=== PATIENT | female | born 2000 | race Caucasian/White ===

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

== ENCOUNTER → 2020-09-07 | Outpatient (CLI) | payer BC | END | disposition home or self-care (01) | DX: K82.8 Other specified diseases of gallbladder (principal) ==

== ENCOUNTER 2020-10-01 06:17 | Day surgery (SDC) | payer BC ==
[2020-09-27 10:30] VITALS: BMI 21.9
[~2020-10-01 06:17] MED LIST: ACETAMINOPHEN TAB 500 MG TAB PO PRN; DEXAMETHASONE SOD PHOSPHATE 4 MG/ML 1 ML VIAL IV ONE; HEPARIN SODIUM,PORCINE/PF 5,000 UNIT/0.5 ML SYRINGE SQ PRN; LACTATED RINGERS 1,000 ML IV SCH; MIDAZOLAM 2 MG/2 ML VIAL IV PRN; ONDANSETRON 4 MG/2 ML VIAL IVP ONE; SCOPOLAMINE 1.5MG/72HR PATCH TRANSDERM ONE
[2020-10-01 06:41] VITALS: TEMP 97.8
[2020-10-01] MEDS ORDERED: LACTATED RINGERS 1,000 ML IV ONE (06:53)
[2020-10-01] MEDS ORDERED: HYDROmorphone 0.5 MG/0.5 ML SYRINGE IVP PRN (07:00)
[2020-10-01] MEDS ORDERED: SUCCINYLCHOLINE CHLORIDE 100 MG/5 ML SYR IV ONE (07:40)
[2020-10-01] MEDS ORDERED: NEOSTIGMINE 1 MG/ML 10 ML VIAL ONE (07:40)
[2020-10-01] MEDS ORDERED: PROPOFOL 10 MG/ML 20 ML VIAL IV ONE (07:40)
[2020-10-01] MEDS ORDERED: HYDROmorphone (PF) 1 MG/ML ONE (07:40)
[2020-10-01] MEDS ORDERED: ROCURONIUM 10 MG/ML (5 ML VIAL) IV ONE (07:40)
[2020-10-01] MEDS ORDERED: MIDAZOLAM 2 MG/2 ML VIAL ONE (07:40)
[2020-10-01] MEDS ORDERED: KETOROLAC 15 MG/ML 1 ML VIAL ONE (07:40)
[2020-10-01] MEDS ORDERED: GLYCOPYRROLATE 0.2 MG/ML 2 ML VIAL ONE (07:40)
[2020-10-01] MEDS ORDERED: LIDOCAINE 1% INJ 10MG/ML (20 ML MDV) ONE (07:40)
[2020-10-01] MEDS ORDERED: fentaNYL (PF) 50 MCG/ML 2 ML AMP ONE (07:40)
[2020-10-01] MEDS ORDERED: BUPIVACAINE (PF) 0.5% 30 ML VIAL SQ ONE (08:03)
--- NOTE | 2020-10-01 08:25 | P.GSHP ---
History of Present Illness H&P Date: 10/01/20 Chief Complaint: Right upper quadrant pain This is a 20-year-old female who's had complaints of right upper quadrant pain. Recent HIDA scan shows an abnormal ejection fraction. Patient presents today for laparoscopic cholecystectomy Past Medical History Additional Past Medical History / Comment(s): hx of migraine headaches, cholecystisis History of Any Multi-Drug Resistant Organisms: None Reported Past Surgical History: No Surgical Hx Reported Past Anesthesia/Blood Transfusion Reactions: No Reported Reaction Smoking Status: Never smoker Medications and Allergies Home Medications Medication Instructions Recorded Confirmed Type Enskyce 1 tab PO DAILY 09/27/20 History Propranolol [Inderal] 20 mg PO HS 09/27/20 09/27/20 History Allergies Allergy/AdvReac Type Severity Reaction Status Date / Time No Known Allergies Allergy Verified 09/27/20 10:27 Surgical - Exam Vital Signs Temp Pulse Resp BP Pulse Ox 97.8 F 82 18 101/59 97 10/01/20 06:40 10/01/20 06:40 10/01/20 06:40 10/01/20 06:40 10/01/20 06:40 - General well developed, well nourished, no distress - Eyes PERRL - ENT normal pinna - Neck no masses - Respiratory normal expansion - Cardiovascular Rhythm: regular - Abdomen Abdomen: soft, non tender Assessment and Plan Assessment: Chronic cholecystitis. We'll perform laparoscopic cholecystectomy
--- NOTE | 2020-10-01 08:27 | P.OP ---
Date of Procedure: 10/01/20 Preoperative Diagnosis: Cholecystitis Postoperative Diagnosis: Cholecystitis Procedure(s) Performed: Laparoscopic cholecystectomy Anesthesia: DUNCAN Surgeon: Eric Case Estimated Blood Loss (ml): 5 Pathology: none sent Condition: stable Disposition: PACU Description of Procedure: The patient was placed on the operating table. The patient received a general endotracheal tube anesthesia. The patients abdomen was prepped and draped in the usual sterile fashion. Through an infraumbilical stab incision, the fascia of the anterior abdominal wall was grasped with a pair of Kochers and then the Veress needle was placed in the peritoneal cavity. Position of the Veress needle was confirmed with positive drop test. The abdomen was then insufflated. After adequate insufflation, the 10 mm trocar was placed in the peritoneal cavity. Following this the laparoscope was placed in the peritoneal cavity. The patient was placed in the head-up, right side up position and then a 5 mm trocar was placed in the right lateral and right subcostal position under direct visualization. A 8 mm trocar was placed in the epigastric position. The gallbladder was grasped in the fundus and infundibulum. Traction on the gallbladder was placed in the lateral and the c ephalad positions. The triangle of Calot was visualized.. The cystic duct was bluntly dissected until the union of the cystic duct and common bile duct was seen. A critical view of safety was achieved. The cystic duct was then divided and sealed with the Harmonic scissors. A PDS Endoloop was then placed throughout the cystic duct stump. The cystic artery divided and sealed with the Harmonic scissors. The gallbladder was then removed from the liver bed using Harmonic scissors. The gallbladder was then extracted through the epigastric port site. Operative field was checked for any bleeding spots and Harmonic scissors was used to coagulate the liver bed. The abdomen was irrigated. The trocars were removed. The skin was closed using interrupted 3-0 Vicryl suture. Dermabond dressing were applied. The patient tolerated the procedure well.
[2020-10-01 08:48] VITALS: RESP 16
[2020-10-01 09:55] VITALS: BP 106/65; PULSE 77
== END 2020-10-01 10:16 | disposition home or self-care (01) ==
LOC: OR 06:17
PROVIDERS: ATTEND Surgery
DX: K81.1 Chronic cholecystitis (principal); Z79.3 Long term (current) use of hormonal contraceptives; Z79.899 Other long term (current) drug therapy
CPT/HCPCS: 81025; 88304; 47562; J2250; J1100; J2710; J0690; J2405; J2001; J3010; J1170 ×2; J1885; J0330; J2704; J1644

== ENCOUNTER 2023-08-28 05:48 | Inpatient (IN) | payer BC ==
[2023-08-28] MEDS ORDERED: OXYTOCIN 10 UNIT/ML 1 ML VIAL IM PRN (06:06)
[2023-08-28] MEDS ORDERED: TRANEXAMIC 1,000 MG/100ML-NACL 1,000 MG in EMPTY BAG 1 BAG IV PRN (06:06)
[2023-08-28] MEDS ORDERED: METHYLERGONOVINE 0.2 MG/ML 1 ML AMP IM PRN (06:06)
[2023-08-28] MEDS ORDERED: CARBOPROST TROMETHAMINE 250 MCG/ML 1 ML AMP IM PRN (06:06)
[2023-08-28] MEDS ORDERED: miSOPROStoL 200 MCG TAB PO PRN (06:06)
[2023-08-28] MEDS ORDERED: TERBUTALINE 1 MG/ML VIAL SQ PRN (06:06)
[2023-08-28] MEDS: LACTATED RINGERS 1,000 ML IV SCH (06:22)
[2023-08-28] MEDS: OXYTOCIN 30 UNITS/500 ML NS 30 UNIT in SALINE 1 500ML.BAG IV SCH (06:36)
[2023-08-28 07:09] LABS: Basophils # (A) 0.1 k/uL (0-0.2); Basophils % (A) 1 %; Eosinophils # (A) 0.2 k/uL (0-0.7); Eosinophils % (A) 2 %; HGB 11.9 gm/dL (11.4-16.0); Lymphocytes # (A) 3.8 k/uL (1.0-4.8); Lymphocytes % (A) 35 %; MCH 28.7 pg (25.0-35.0); MCHC 32.2 g/dL (31.0-37.0); MCV 89.4 fL (80.0-100.0); Mean Platelet Volume 8.3; Monocytes # (A) 0.4 k/uL (0-1.0); Monocytes % (A) 4 %; Neutrophils # (A) 6.1 k/uL (1.3-7.7); Neutrophils % (A) 57 %; Platelet Count 291 k/uL (150-450); RBC 4.13 m/uL (3.80-5.40); WBC 10.7 k/uL (3.8-10.6)
[2023-08-28] MEDS: NALBUPHINE 10 MG/ML (10 ML MDV) IV PRN (10:56)
[2023-08-28] MEDS ORDERED: ROPIVACAINE 5 MG/ML 30 ML VIAL ONE (11:40)
[2023-08-28] MEDS ORDERED: SODIUM CHLORIDE 0.9% 250 ML BAG ONE (11:40)
[2023-08-28] MEDS ORDERED: fentaNYL (PF) 50 MCG/ML 5 ML AMP ONE (11:40)
[2023-08-28] MEDS: LIDOCAINE 0.5% (PF) 5 MG/ML (50 ML SDV) SQ PRN (16:20)
[2023-08-28] MEDS ORDERED: PROPOFOL 10 MG/ML 20 ML VIAL IV ONE (16:26)
[2023-08-28] MEDS ORDERED: diphenhydrAMINE 25 MG CAP PO PRN (17:09)
[2023-08-28] MEDS ORDERED: BENZOCAINE/MENTHOL SPRAY 1 GM/SPRAY AEROSOL TOPICAL PRN (17:09)
[2023-08-28] MEDS ORDERED: LANOLIN CREAM 1 GM TUBE TOPICAL PRN (17:09)
[2023-08-28] MEDS ORDERED: SIMETHICONE 80 MG CHEWABLE PO PRN (17:09)
[2023-08-28] MEDS ORDERED: diphenhydrAMINE 50 MG/ML 1 ML VIAL IVP PRN ×2 (17:09)
[2023-08-28] MEDS ORDERED: HYDROCORTISONE 2.5% RECTAL CREAM 30 GM TUBE RECTAL PRN (17:09)
[2023-08-28] MEDS ORDERED: diphenhydrAMINE 50 MG CAP PO PRN (17:09)
[2023-08-28] MEDS ORDERED: ZOLPIDEM 5 MG TAB PO PRN (17:09)
--- NOTE | 2023-08-28 17:09 | P.PROBDLV ---
Vaginal Delivery Note - . Vaginal Delivery Note: Viable male delivered at 1533 , weight of 7 pounds 6.7 ounces, Apgars 9 and 9 at 1 and 5 minutes respectively. 23-year-old G2, P0 at 39 weeks of presented for induction of labor this morning. Patient was admitted and Pitocin induction of labor was begun. Amniotomy was performed and clear fluid was obtained. Patient did become" uncomfortable and request epidural placement. Epidural was placed without difficulty by the anesthesia department. Patient made good progress toward complete dilation. Once completely dilated she began pushing and with excellent maternal effort had a normal spontaneous vaginal delivery of a viable male , loose nuchal cord was delivered through. Weight of 7 pounds 6 ounces. After 2-minute delay the umbilical cord was doubly clamped and cut. Cord blood was then taken. The placenta was delivered spontaneously intact with a three- vessel cord being noted. On inspection the patient's vaginal vault multiple lacerations were appreciated. A posterior laceration was noted high in the vaginal vault. Attempt was made to find the apex with a running locked suture of 3-0 Rapide. Inability to find the apex secondary to position and lighting led us to the operating suite. Once in the operating suite propofol/MAC was performed by anesthesia patient was placed in a dorsal lithotomy position a Augustine retractor was placed anteriorly the apex was visualized and closed in a running locked fashion. Surgicel powder was placed along this edge. Hemostasis of all lacerations were noted prior to leaving the OR. Prior to going to the operating suite a second-degree vaginal introitus laceration was appreciated this was repaired in a running locked suture of 3-0 Rapide. Multiple counts were performed in the delivery room and in the operating room all were complete and correct. Estimated blood loss in the delivery room 300 cc, estimated blood loss in the OR 15 cc. She did receive approximately 100 cc of LR in the operating suite, bladder was drained in the delivery room for approximately 100 cc. Patient and tolerated delivery/repair well
[2023-08-28] MEDS: IBUPROFEN 600 MG TAB PO SCH (17:52)
--- NOTE | 2023-08-28 18:56 | P.HPOB ---
History of Present Illness H&P Date: 08/28/23 Chief Complaint: IUP at 39 weeks This is a 23-year-old 2 para 0-0-1-0 at 39 weeks of that presents to labor and delivery for induction of labor. Patient has been receiving routine care which has been essentially uncomplicated. Patient has a prior history of a molar which was followed completely to a quantitative beta-hCG to 0 approximately 1 year ago. This morning patient notes good movement, and occasional contraction. Denies vaginal bleeding or loss of fluid. On blood work this patient is a blood type of O+, rubella status immune, hepatitis B surface engine negative, HIV negative, RPR is nonreactive, group B strep culture is negative. Review of Systems Constitutional: Denies chills, Denies fatigue, Denies fever Ears, nose, mouth and throat: Denies headache Cardiovascular: Reports leg edema Respiratory: Denies dyspnea Gastrointestinal: Denies constipation, Denies diarrhea, Denies nausea, Denies vomiting Genitourinary: Reports Past Medical History Past Medical History: Thyroid Disorder Additional Past Medical History / Comment(s): MISCARRIAGE History of Any Multi-Drug Resistant Organisms: None Reported Past Surgical History: Cholecystectomy, No Surgical Hx Reported Past Anesthesia/Blood Transfusion Reactions: No Reported Reaction, Postoperative Nausea & Vomiting (PONV) Past Psychological History: Anxiety, No Psychological Hx Reported Smoking Status: Former smoker, Never smoker Past Alcohol Use History: Occasional, Rare Additional Past Alcohol Use History / Comment(s): QUIT SMOKING NOVEMBER 2021 Past Drug Use History: None Reported - Past Family History Mother Family Medical History: No Reported History Medications and Allergies Home Medications Medication Instructions Recorded Confirmed Type Acetaminophen Tab [Tylenol] 650 mg PO Q6H #30 tab 10/01/20 08/28/23 Rx Acetaminophen [Tylenol] 325 - 650 mg PO Q6H PRN 04/25/22 08/28/23 History Levothyroxine Sodium [Synthroid] 100 mcg PO QAM 04/25/22 08/28/23 History busPIRone HCL 10 mg PO BID 04/25/22 08/28/23 History Pantoprazole Sodium [Protonix] 20 mg PO DAILY PRN 08/28/23 08/28/23 History Allergies Allergy/AdvReac Type Severity Reaction Status Date / Time No Known Allergies Allergy Verified 04/28/22 11:58 Exam Osteopathic Statement: *. No significant issues noted on an osteopathic structural exam other than those noted in the History and Physical/Consult. Intake and Output 08/27/23 08/28/23 08/28/23 22:59 06:59 14:59 Other: # Voids 1 Weight 82.1 kg Targeted physical exam is performed this date General is well-nourished well- developed female in no acute distress, breathing is nonlabored, heart has a regular rate and rhythm, abdomen is gravid and appropriate for gestational age, on cervical exam she is 2/70/-2 station amniotomy was performed and copious clear fluid was obtained. heart tones are noted to be category 1 and she is wilver every 3 minutes. Results Result Diagrams: 08/28/23 06:15 Abnormal Lab Results - Last 24 Hours (Table) 08/28/23 Range/Units 06:15 WBC 10.7 H (3.8-10.6) k/uL Assessment and Plan (1) Term Current Visit: Yes Status: Acute Code(s): Z34.90 - ENCNTR FOR SUPRVSN OF NORMAL , UNSP, UNSP TRIMESTER SNOMED Code(s): 51140239 (2) History of molar Current Visit: Yes Status: Acute Code(s): Z87.59 - PERSONAL HISTORY OF COMP OF PREG, CHLDBRTH AND THE PUERP SNOMED Code(s): 04084664009044767 Plan: 23-year-old G2, P0 at 39 weeks of presents for induction of labor. Patient is admitted and Pitocin induction of labor has begun per hospital protocol. Options for analgesia are discussed including IV Nubain, nitrous, epidural, she will consider.
[2023-08-28] MEDS: SENNOSIDES-DOCUSATE SODIUM 1 EACH TAB PO SCH (20:30)
[2023-08-28] MEDS: busPIRone HCl 10 MG TAB PO SCH (20:30)
[2023-08-29] MEDS: ACETAMINOPHEN TAB 325 MG TAB PO PRN (04:26)
[2023-08-29 05:14] LABS: Basophils # (A) 0.1 k/uL (0-0.2); Basophils % (A) 0 %; Eosinophils # (A) 0.1 k/uL (0-0.7); Eosinophils % (A) 1 %; Lymphocytes # (A) 3.3 k/uL (1.0-4.8); Lymphocytes % (A) 22 %; MCH 29.2 pg (25.0-35.0); MCHC 32.7 g/dL (31.0-37.0); MCV 89.3 fL (80.0-100.0); Mean Platelet Volume 8.2; Monocytes # (A) 0.6 k/uL (0-1.0); Monocytes % (A) 4 %; Neutrophils # (A) 10.7 k/uL (1.3-7.7); Neutrophils % (A) 72 %; Platelet Count 238 k/uL (150-450); RBC 2.91 m/uL (3.80-5.40); WBC 14.8 k/uL (3.8-10.6)
[2023-08-29 05:21] LABS: HGB 8.5 gm/dL (11.4-16.0)
[2023-08-29] MEDS: LEVOTHYROXINE 100 MCG TAB PO SCH (08:25)
[2023-08-29 08:30] VITALS: RESP 17
--- NOTE | 2023-08-29 09:35 | P.DS ---
Providers Date of admission: 08/28/23 05:48 Expected date of discharge: 08/29/23 Attending physician: Mary Mcgill Primary care physician: Stated None - Discharge Diagnosis(es) (1) Term Current Visit: Yes Status: Acute (2) History of molar Current Visit: Yes Status: Acute (3) Status post vacuum-assisted vaginal delivery Current Visit: Yes Status: Acute (4) Obstetrical laceration High posterior vaginal wall, repaired in the operating room Current Visit: Yes Status: Acute Hospital Course: 23-year-old 2 para 1-0-1-1 that presented to labor and delivery yesterday for scheduled induction of labor. Patient had a history of a molar in the past. Patient was admitted and Pitocin induction of labor was begun. Patient did request epidural for analgesia. Epidural was placed by the anesthesia department without difficulty. Patient made good progress toward complete. Once completely dilated she began pushing and had a vacuum assist vaginal delivery of a viable male infant at 1533, weight of 7 pounds 7 ounces. Patient underwent vacuum-assisted vaginal delivery secondary to bradycardi a while . Spontaneous cry was noted at . On inspection of patient's vaginal vault a posterior wall laceration was appreciated this was noted to be high in the vagina and necessitated better visualization therefore she was taken to the operating room for visualization. This was repaired in the usual fashion with 3-0 Rapide. Surgicel powder was placed along the laceration line in addition. Patient's course has been uneventful. On this day #1 she is ambulating and voiding without difficulty. She is tolerating a regular diet without nausea or vomiting. She states her pain is well-controlled. She is breast-feeding. She would like discharge home later today if possible. Patient Condition at Discharge: Good Plan - Discharge Summary New Discharge Prescriptions: No Action Levothyroxine Sodium [Synthroid] 100 mcg PO QAM Acetaminophen [Tylenol] 325 - 650 mg PO Q6H PRN PRN Reason: Pain Acetaminophen Tab [Tylenol] 650 mg PO Q6H #30 tab busPIRone HCL 10 mg PO BID Pantoprazole Sodium [Protonix] 20 mg PO DAILY PRN PRN Reason: Heartburn Discharge Medication List Acetaminophen Tab [Tylenol] 650 mg PO Q6H #30 tab 10/01/20 [Rx] Acetaminophen [Tylenol] 325 - 650 mg PO Q6H PRN 04/25/22 [History] Levothyroxine Sodium [Synthroid] 100 mcg PO QAM 04/25/22 [History] busPIRone HCL 10 mg PO BID 04/25/22 [History] Pantoprazole Sodium [Protonix] 20 mg PO DAILY PRN 08/28/23 [History] Follow up Appointment(s)/Referral(s): Mary Mcgill DO [Doctor of Osteopathic Medicine] - 10/15/23 1:00 pm Patient Instructions/Handouts: Vaginal Delivery (DC), Vaginal Delivery (GEN) Activity/Diet/Wound Care/Special Instructions: No intercourse, tampons or tub baths. No driving for two weeks. Call with any fever, shakes or chills, with any pain not alleviated by over the counter meds, or with any quesions or concerns. [id number] ibuprofen 600 mg or 3 tablets every 6 hours as needed for pain. Patient is encouraged to continue iron twice daily with orange juice for absorption. Discharge Disposition: HOME SELF-CARE
[2023-08-29 15:55] VITALS: BP 118/72; PULSE 81; TEMP 98.5
== END 2023-08-29 16:29 | disposition home or self-care (01) | DRG 807 ==
LOC: 4FBP 05:48
PROVIDERS: ADMIT Obstetrics & Gynecology Obstetrics; ATTEND Obstetrics & Gynecology Obstetrics
PROC: 0KQM0ZZ Repair Perineum Muscle, Open Approach (ICD-10-PCS; 2023-08-28)
PROC: 3E033VJ Introduction of Other Hormone into Peripheral Vein, Percutaneous Approach (ICD-10-PCS; 2023-08-28)
PROC: 10907ZC Drainage of Amniotic Fluid, Therapeutic from Products of Conception, Via Natural or Artificial Opening (ICD-10-PCS; 2023-08-28)
PROC: 10D07Z6 Extraction of Products of Conception, Vacuum, Via Natural or Artificial Opening (ICD-10-PCS; principal; 2023-08-28 16:30)
DX: O76 Abnormality in fetal heart rate and rhythm complicating labor and delivery (principal); Z37.0 Single live birth; Z3A.39 39 weeks gestation of pregnancy; O70.1 Second degree perineal laceration during delivery; O69.81X0 Labor and delivery complicated by cord around neck, without compression, not applicable or unspecified; O99.283 Endocrine, nutritional and metabolic diseases complicating pregnancy, third trimester; E07.9 Disorder of thyroid, unspecified; F41.9 Anxiety disorder, unspecified; O99.344 Other mental disorders complicating childbirth; Z79.890 Hormone replacement therapy; Z79.899 Other long term (current) drug therapy; Z87.891 Personal history of nicotine dependence
CPT/HCPCS: 85025; 86850; 86900; 86901; 88307

== ENCOUNTER 2024-01-13 13:16 | Emergency (ER) | payer BC, OTHER ==
[2024-01-13 13:24] VITALS: TEMP 98.4
[2024-01-13] MEDS: SODIUM CHLORIDE 0.9% 500 ML 500 ML IV STA (14:27)
[2024-01-13] MEDS: KETOROLAC 15 MG/ML 1 ML VIAL IVP STA (14:28)
[2024-01-13 14:29] LABS: Basophils % (A) 1 %; Eosinophils # (A) 0.1 k/uL (0-0.7); Eosinophils % (A) 2 %; HCT 35.1 % (34.0-46.0); HGB 11.8 gm/dL (11.4-16.0); Lymphocytes # (A) 2.5 k/uL (1.0-4.8); Lymphocytes % (A) 53 %; MCH 27.6 pg (25.0-35.0); MCHC 33.8 g/dL (31.0-37.0); MCV 81.8 fL (80.0-100.0); Mean Platelet Volume 7.6; Monocytes # (A) 0.2 k/uL (0-1.0); Monocytes % (A) 4 %; Neutrophils # (A) 1.8 k/uL (1.3-7.7); Neutrophils % (A) 39 %; Platelet Count 265 k/uL (150-450); RBC 4.29 m/uL (3.80-5.40); RDW 14.6 % (11.5-15.5); WBC 4.7 k/uL (3.8-10.6)
[2024-01-13] MEDS: ONDANSETRON 4 MG/2 ML VIAL IVP STA (14:29)
[2024-01-13 14:39] LABS: ALT 12 U/L (4-34); AST 20 U/L (14-36); African American GFR (CKD) >90 (>60 ml/min/1.73 sqM); Alkaline Phosphatase 70 U/L (38-126); Anion Gap 8 mmol/L; Blood Urea Nitrogen 12 mg/dL (7-17); Calcium 9.6 mg/dL (8.4-10.2); Carbon Dioxide 25 mmol/L (22-30); Chloride 108 mmol/L (98-107); Glucose 90 mg/dL (74-99); Lipase 89 U/L (23-300); Non-African American GFR(CKD) >90 (>60 ml/min/1.73 sqM); Potassium 4.1 mmol/L (3.5-5.1); Sodium 141 mmol/L (137-145); Total Bilirubin 0.6 mg/dL (0.2-1.3); Total Protein 7.8 g/dL (6.3-8.2)
[2024-01-13 14:41] LABS: Appearance,Urine Clear (Clear); Bilirubin,Urine Negative (Negative); Blood,Urine Negative (Negative); Color,Urine Colorless; Glucose,Urine (UA) Negative (Negative); Ketones,Urine Negative (Negative); Leukocyte Esterase,Urine Negative (Negative); Nitrite,Urine Negative (Negative); Protein,Urine Negative (Negative); Urobilinogen,Urine <2.0 mg/dL (<2.0)
--- NOTE | 2024-01-13 14:58 | ED ---
Abdominal Pain HPI - General Chief Complaint: Abdominal Pain Stated Complaint: Abd/back pain Time Seen by Provider: 01/13/24 14:50 Source: patient, RN notes reviewed Mode of arrival: ambulatory Limitations: no limitations - History of Present Illness Initial Comments: 23-year-old female presenting to the ER with chief complaint of pelvic pain x 5 months. Patient reports she has been having constant, pressure-like sensation in the pelvis since vaginal delivery 5 months ago with associated nausea and bodyaches. States that "it feels like there is a big problem putting pressure on my stomach". Pain radiates to the back and the epigastric region. Patient reports symptoms are worsening. Denies fever, vomiting, vaginal bleeding, urinary symptoms. Patient is breast-feeding and has not had a menstrual period since the delivery. Denies complications during . Patient delivered a uncomplicated vaginal delivery at 39 weeks gestation. Patient has been following with Dr. Mcgill CREDIT CONTROL ADMINISTRATOR regarding the symptoms who ordered a pelvic ultrasound but is not scheduled until January. - Related Data Home Medications Medication Instructions Recorded Confirmed Levothyroxine Sodium [Synthroid] 100 mcg PO QAM 04/25/22 01/13/24 busPIRone HCL 10 mg PO BID 04/25/22 01/13/24 Cholestyramine (with Sugar) 4 gm PO BID 01/13/24 01/13/24 [Cholestyramine Powder] Tzz-Aloo-Hqfvq Acid 1 cap PO DAILY 01/13/24 01/13/24 [-U Capsule (formulary)] Previous Rx's Medication Instructions Recorded Ondansetron Odt [Zofran Odt] 4 mg PO Q8HR PRN #10 tab 01/13/24 Allergies Allergy/AdvReac Type Severity Reaction Status Date / Time Milk Containing Products Allergy see comment Verified 01/13/24 15:31 (Dairy) [Dairy] Review of Systems ROS Statement: Those systems with pertinent positive or pertinent negative responses have been documented in the HPI. ROS Other: All systems not noted in ROS Statement are negative. Past Medical History Past Medical History: Thyroid Disorder Additional Past Medical History / Comment(s): MISCARRIAGE (2021) History of Any Multi-Drug Resistant Organisms: None Reported Past Surgical History: Cholecystectomy Additional Past Surgical History / Comment(s): TBI (2017) Past Anesthesia/Blood Transfusion Reactions: No Reported Reaction, Postoperative Nausea & Vomiting (PONV) Past Psychological History: Anxiety, No Psychological Hx Reported Smoking Status: Former smoker Past Alcohol Use History: Occasional Past Drug Use History: None Reported - Past Family History Mother Family Medical History: No Reported History General Exam Limitations: no limitations General appearance: alert, in no apparent distress Head exam: Present: atraumatic, normocephalic, normal inspection Eye exam: Present: normal appearance, PERRL, EOMI. Absent: scleral icterus, conjunctival injection, periorbital swelling ENT exam: Present: normal exam, mucous membranes moist Neck exam: Present: normal inspection. Absent: tenderness, meningismus, lympha denopathy Respiratory exam: Present: normal lung sounds bilaterally. Absent: respiratory distress, wheezes, rales, rhonchi, stridor Cardiovascular Exam: Present: regular rate, normal rhythm, normal heart sounds. Absent: systolic murmur, diastolic murmur, rubs, gallop, clicks GI/Abdominal exam: Present: soft, normal bowel sounds. Absent: distended, tenderness, guarding, rebound, rigid Back exam: Absent: CVA tenderness (R), CVA tenderness (L) Neurological exam: Present: alert, oriented X3, CN II-XII intact Psychiatric exam: Present: normal affect, normal mood Skin exam: Present: warm, dry, intact, normal color. Absent: rash Course Vital Signs 01/13/24 01/13/24 13:19 16:08 Temperature 98.4 F Pulse Rate 76 56 L Respiratory 16 18 Rate Blood Pressure 104/67 97/56 O2 Sat by Pulse 100 97 Oximetry Medical Decision Making - Medical Decision Making Was pt. sent in by a medical professional or institution (, PA, BID WRITER, urgent care, hospital, or senior care...) When possible be specific @ -No Did you speak to anyone other than the patient for history (EMS, parent, family, police, friend...)? What history was obtained from this source @ -No Did you review nursing and triage notes (agree or disagree)? Why? @ -I reviewed and agree with nursing and triage notes Were old charts reviewed (outside hosp., previous admission, EMS record, old EKG, old radiological studies, urgent care reports/EKG's, senior care records)? Report findings @ -No old charts were reviewed Differential Diagnosis (chest pain, altered mental status, abdominal pain women, abdominal pain men, vaginal bleeding, weakness, fever, dyspnea, syncope, headache, dizziness, GI bleed, back pain, seizure, CVA, palpatations, mental health, musculoskeletal)? @ -Differential Abdominal Pain Women: Appendicitis, Cholecystitis, diverticulosis, ischemic bowel, pancreatitis, hepatitis, UTI, gastroenteritis, AAA, incarcerated hernia, bowel obstruction, constipation, inflammatory bowel, hepatitis, peptic ulcer disease, splenic infarction, perforated viscus, vulvitis, ovarian torsion, PID, kidney stone, placenta abruption, this is not meant to be an all-inclusive list EKG interpreted by me (3pts min.). @ -None X-rays interpreted by me (1pt min.). @ -None done CT interpreted by me (1pt min.). @ -None done U/S interpreted by me (1pt. min.). @ -Ultrasound pelvis reveals mildly prominent bilateral ovaries with suggesting of polycystic ovary morphology What testing was considered but not performed or refused? (CT, X-rays, U/S, labs)? Why? @ -None What meds were considered but not given or refused? Why? @ -None Did you discuss the management of the patient with other professionals (professionals i.e. , PA, BID WRITER, lab, RT, psych nurse, psychiatric social worker, cherry cutter, teacher, parking control officer, case making machine operator)? Give summary @ -No Was smoking cessation discussed for >3mins.? @ -No Was critical care preformed (if so, how long)? @ -No Were there social determinants of health that impacted care today? How? (Homelessness, low income, unemployed, alcoholism, drug addiction, transportation, low edu. Level, literacy, decrease access to med. care, fpc, rehab)? @ -No Was there de-escalation of care discussed even if they declined (Discuss DNR or withdrawal of care, Hospice)? DNR status @ -No What co-morbidities impacted this encounter? (DM, HTN, Smoking, COPD, CAD, Cancer, CVA, ARF, Chemo, Hep., AIDS, mental health diagnosis, sleep apnea, morbid obesity)? @ -None Was patient admitted / discharged? Hospital course, mention meds given and route, prescriptions, significant lab abnormalities, going to OR and other pertinent info. @ -Discharge. This is a 23-year-old female with pelvic pain x 5 months status post uncomplicated vaginal delivery. Vital signs within acceptable limits. Abdomen is soft and nontender to palpation. Patient is provided with analgesics and antiemetics for supportive care. Lab work including CBC, CMP, lipase, lactic acid unremarkable. Urinalysis unremarkable. Urine negative. Ultrasound pelvis reveals mildly prominent bilateral ovaries with suggesting of polycystic ovary morphology. Results discussed with patient. There does not appear to be emergent etiology causing symptoms today. Advised close follow-up with CREDIT CONTROL ADMINISTRATOR for further workup. Case was discussed with my ED attending Dr. Woodward. Patient discharged in stable condition. Undiagnosed new problem with uncertain prognosis? @ -No Drug Therapy requiring intensive monitoring for toxicity (Heparin, Nitro, Insulin, Cardizem)? @ -No Were any procedures done? @ -No Diagnosis/symptom? @ -Pelvic pain Acute, or Chronic, or Acute on Chronic? @ -Chronic Uncomplicated (without systemic symptoms) or Complicated (systemic symptoms)? @ -Uncomplicated Side effects of treatment? @ -No Exacerbation, Progression, or Severe Exacerbation? @ -No Poses a threat to life or bodily function? How? (Chest pain, [place], AL, pneumonia, PE, COPD, DKA, ARF, appy, cholecystitis, CVA, Diverticulitis, Homicidal, Suicidal, threat to staff... and all critical care pts) @ -No - Lab Data Result diagrams: 01/13/24 14:19 01/13/24 14:19 Lab Results 01/13/24 01/13/24 01/13/24 Range/Units 14:19 14:19 14:19 WBC 4.7 (3.8-10.6) k/uL RBC 4.29 (3.80-5.40) m/uL Hgb 11.8 (11.4-16.0) gm/dL Hct 35.1 (34.0-46.0) % MCV 81.8 (80.0-100.0) fL MCH 27.6 (25.0-35.0) pg MCHC 33.8 (31.0-37.0) g/dL RDW 14.6 (11.5-15.5) % Plt Count 265 (150-450) k/uL MPV 7.6 Neutrophils % 39 % Lymphocytes % 53 % Monocytes % 4 % Eosinophils % 2 % Basophils % 1 % Neutrophils # 1.8 (1.3-7.7) k/uL Lymphocytes # 2.5 (1.0-4.8) k/uL Monocytes # 0.2 (0-1.0) k/uL Eosinophils # 0.1 (0-0.7) k/uL Basophils # 0.0 (0-0.2) k/uL Sodium 141 (137-145) mmol/L Potassium 4.1 (3.5-5.1) mmol/L Chloride 108 H (98-107) mmol/L Carbon Dioxide 25 (22-30) mmol/L Anion Gap 8 mmol/L BUN 12 (7-17) mg/dL Creatinine 0.73 (0.52-1.04) mg/dL Est GFR (CKD-EPI)AfAm >90 (>60 ml/min/1.73 sqM) Est GFR (CKD-EPI)NonAf >90 (>60 ml/min/1.73 sqM) Glucose 90 (74-99) mg/dL Plasma Lactic Acid [place] (0.7-2.0) mmol/L Calcium 9.6 (8.4-10.2) mg/dL Total Bilirubin 0.6 (0.2-1.3) mg/dL AST 20 (14-36) U/L ALT 12 (4-34) U/L Alkaline Phosphatase 70 (38-126) U/L Total Protein 7.8 (6.3-8.2) g/dL Albumin 5.0 (3.5-5.0) g/dL Lipase 89 (23-300) U/L Urine Color Colorless Urine Appearance Clear (Clear) Urine pH 7.0 (5.0-8.0) Ur Specific [place] 1.010 (1.001-1.035) Urine Protein Negative (Negative) Urine Glucose (UA) Negative (Negative) Urine Ketones Negative (Negative) Urine Blood Negative (Negative) Urine Nitrite Negative (Negative) Urine Bilirubin Negative (Negative) Urine Urobilinogen <2.0 (<2.0) mg/dL Ur Leukocyte Esterase Negative (Negative) Urine HCG, Qual (Not Detectd) 01/13/24 01/13/24 Range/Units 14:19 14:19 WBC (3.8-10.6) k/uL RBC (3.80-5.40) m/uL Hgb (11.4-16.0) gm/dL Hct (34.0-46.0) % MCV (80.0-100.0) fL MCH (25.0-35.0) pg MCHC (31.0-37.0) g/dL RDW (11.5-15.5) % Plt Count (150-450) k/uL MPV Neutrophils % % Lymphocytes % % Monocytes % % Eosinophils % % Basophils % % Neutrophils # (1.3-7.7) k/uL Lymphocytes # (1.0-4.8) k/uL Monocytes # (0-1.0) k/uL Eosinophils # (0-0.7) k/uL Basophils # (0-0.2) k/uL Sodium (137-145) mmol/L Potassium (3.5-5.1) mmol/L Chloride (98-107) mmol/L Carbon Dioxide (22-30) mmol/L Anion Gap mmol/L BUN (7-17) mg/dL Creatinine (0.52-1.04) mg/dL Est GFR (CKD-EPI)AfAm (>60 ml/min/1.73 sqM) Est GFR (CKD-EPI)NonAf (>60 ml/min/1.73 sqM) Glucose (74-99) mg/dL Plasma Lactic Acid [place] 1.0 (0.7-2.0) mmol/L Calcium (8.4-10.2) mg/dL Total Bilirubin (0.2-1.3) mg/dL AST (14-36) U/L ALT (4-34) U/L Alkaline Phosphatase (38-126) U/L Total Protein (6.3-8.2) g/dL Albumin (3.5-5.0) g/dL Lipase (23-300) U/L Urine Color Urine Appearance (Clear) Urine pH (5.0-8.0) Ur Specific [place] (1.001-1.035) Urine Protein (Negative) Urine Glucose (UA) (Negative) Urine Ketones (Negative) Urine Blood (Negative) Urine Nitrite (Negative) Urine Bilirubin (Negative) Urine Urobilinogen (<2.0) mg/dL Ur Leukocyte Esterase (Negative) Urine HCG, Qual Not Detected (Not Detectd) Disposition Clinical Impression: Pelvic pain Disposition: HOME SELF-CARE Condition: Stable Additional Instructions: Please follow-up with CREDIT CONTROL ADMINISTRATOR for further testing. Take Courtney as needed for nausea. Please return to the Emergency Department if symptoms worsen or any other concerns. Prescriptions: Ondansetron Odt [Zofran Odt] 4 mg PO Q8HR PRN #10 tab PRN Reason: Nausea Is patient prescribed a controlled substance at d/c from ED?: No Referrals: Kamaljit Mandujano MD [Primary Care Provider] - 1-2 days Time of Disposition: 15:58
--- NOTE | 2024-01-13 15:18 | US ---
EXAMINATION TYPE: US transvaginal DATE OF EXAM: 01/13/2024 COMPARISON: NONE CLINICAL INDICATION: Female, 23 years old with history of pelvic pain; Pt states pelvic pain/pressure x 5 months TECHNIQUE: Transvaginal (TV). Transvaginal grayscale sonographic images of the pelvis were acquired. Doppler imaging: Color Doppler Images were obtained. Spectral doppler images were obtained. FINDINGS: EXAM MEASUREMENTS: Uterus: 8.7 x 3.7 x 6.0 cm Endometrial Stripe: 0.4 cm Right Ovary: 3.9 x 2.9 x 2.6 cm. Right ovarian volume of 15.27 mm. Left Ovary: 3.8 x 2.1 x 2.5 cm. Left ovarian volume of 10.41 mm. Multiple peripheral follicles bilaterally. 1. Uterus: Anteverted nonspecific trace volume of fluid within cervical canal 2. Endometrium: Small calcifications near endo, endo not thickened 3. Right Ovary: wnl 4. Left Ovary: wnl Spectral, color and waveform doppler imaging shows good arterial and venous flow within the ovaries; there is no evidence for ovarian torsion. 5. Bilateral Adnexa: wnl 6. Posterior cul-de-sac: wnl IMPRESSION: Mildly prominent bilateral ovaries with suggestion of polycystic ovarian morphology. Recommend clinic al correlation. [facility], , 01/13/2024 3:16 PM
[2024-01-13 16:13] VITALS: BP 97/56; PULSE 56; RESP 18
== END 2024-01-13 16:22 | disposition home or self-care (01) ==
LOC: EC 13:16
DX: R10.2 Pelvic and perineal pain (principal); Z87.891 Personal history of nicotine dependence; Z91.011 Allergy to milk products; Z90.49 Acquired absence of other specified parts of digestive tract
CPT/HCPCS: 36415; 80053; 83605; 83690; 85025; 81003; 81025; 93975; 76830; 99284; 96374; 96375; 96361; J2405; J1885